=== PATIENT | female | born 1990 | race Hispanic/Latino ===

== ENCOUNTER 2019-03-25 02:31 | Inpatient (IN) | payer MEDICAID, SELFPAY ==
[2019-03-25 03:28] VITALS: BMI 29.2
[2019-03-25] MEDS ORDERED: hydrALAZINE 20 MG/ML VIAL SLOW IVP PRN ×3 (03:31→22:32)
[2019-03-25] MEDS ORDERED: Ondansetron PF 4 MG/2 ML Vial IVP PRN ×3 (03:40→22:32)
[2019-03-25] MEDS ORDERED: Acetaminophen 500 MG TAB PO PRN (03:40)
[2019-03-25] MEDS ORDERED: Promethazine HCl 25 MG/ML VIAL IM PRN ×2 (03:40→13:10)
[2019-03-25] MEDS ORDERED: NS / Oxytocin 40 units/1000ml 1,000 ML IV PRN (03:40)
[2019-03-25] MEDS ORDERED: Lidocaine 1% (PF) 30 ML VIAL SC PRN (03:40)
[2019-03-25] MEDS ORDERED: Ibuprofen 800 MG TAB PO PRN (03:40)
[2019-03-25] MEDS: Lactated Ringer's 1,000 ML IV SCH ×3 (04:00→12:38)
--- NOTE | 2019-03-25 04:01 | PDOC.FPROB ---
FMR OB H&P: HPI - History of Present Illness Chief Complaint: daphney brozan Indentification: 28 at 39.4 wga by LMP/9wk sono History of Present Illness: Reports gush of fluid at 0200 today. +FM. Small amount of VB. Is having painful ctx. Denies vaginal itching, other discharge. Had intercourse within past 24 hours. Does not desire epidural at this time. Plans to breastfeed. Primary Care Physician: PNC: Kenya Villagomez FMR OB H&P: Current - Care : 1 Para: 0 Gestational age: 39.4 Due date: 03/28/2019 Dating Criteria: LMP c/w 9 wk sono Course/Complications: Anemia of , iron supplementation - OB Labs Blood type: B RH: positive Antibody Screen: negative HIV: negative RPR: negative HepBsAg: negative Rubella: immune Gonorrhea: negative Chlamydia: negative Pap Smear: NILM 1 hour gtt: 127, wnl GBS: negative H&H: 9.9/29.5 Platelets: 196 - Additional Ultrasound Additional: at 28.1 wga. EFW 34%. ZEFERINO 15.6. Posterior placenta, no evidence of previa. FMR OB H&P: History - Past Medical History PMH: denies - OB History OB History: primigravida - RAMP SERVICE AGENT History RAMP SERVICE AGENT History: denies - Surgical History Sx History: denies - Social History Social History: denies smoking, drinking, drugs. - Family History Family History: mother has diabetes. FMR OB H&P: Medications - Current Home Medications: Medication Instructions Recorded Confirmed Type Chlorhexidine Gluconate [Periogard] 15 ml MM BID #0 mouthwash 03/04/13 Rx Triamcinolone Acetonide 1 applic TOP TID #0 tube 03/04/13 Rx [Triamcinolone Acet 0.1% Dental Paste] metroNIDAZOLE [Flagyl] 250 mg PO Q8HR #30 tab 03/04/13 Rx Allergies/Adverse Reactions: Allergies Allergy/AdvReac Type Severity Reaction Status Date / Time No Known Allergies Allergy Verified 03/04/13 19:16 FMR OB H&P: ROS - Review of Systems General: denies: fever/chills, recent trauma ENT: denies: sore throat Cardiovascular: denies: chest pain, edema Respiratory: denies: cough, shortness of breath Gastrointestinal: denies: nausea, vomiting, diarrhea Genitourinary (Female): reports: vaginal bleeding, contractions, vaginal pressure. denies: dysuria, vaginal discharge, vaginal pain Musculoskeletal: denies: pain Neurologic: denies: syncope, weakness Integumentary: denies: itching, rash Hematologic/Lymphatic: denies: prolonged or excessive bleeding Psychological: denies: depression, anxiety FMR OB H&P: Vital Signs - Maternal Vital signs: Vital Signs - First Documented Temp Pulse Resp BP Pulse Ox 100.1 F H 82 18 129/73 98 03/25/19 02:51 03/25/19 02:51 03/25/19 02:51 03/25/19 02:51 03/25/19 02:51 - Heart Tones Baseline: 130 Variability: moderate Acceleration: present Deceleration: absent Category: category 1 [place] contractions every: 1-2 min FMR OB H&P: Physical Exam - Physical Exam General: NAD, awake, alert and oriented HEENT: normocephalic and atraumatic, conjunctiva clear, no scleral icterus, grossly normal hearing Neck: trachea midline Heart: RRR, normal S1/S2, no murmurs/rubs/gallops General: CTAB, no respiratory distress, no wheezing Abdomen: soft, gravid, bowel sound present Lymphatic: no unusual bruising or bleeding Psychiatric: intact recent and remote memory, normal mood and affect - Pelvic Exam Vulva: normal hair distribution Deviation from normal: evidence of clear fluid outside of the vulva SVE: 4/75/-2, soft, midposition Pastor score: 8 Membranes: SROM ~0200 on 03/25 Presentation: cephalic by internal exam, head palpated. Estimated Weight: 8 lbs FMR OB H&P: A/P - Problem List (1) Term Current Visit: Yes Status: Acute Code(s): Z34.90 - ENCNTR FOR SUPRVSN OF NORMAL , UNSP, UNSP TRIMESTER (2) SROM (spontaneous rupture of membranes) Current Visit: Yes Status: Acute Code(s): [id number] - Disposition: admit to L&D for progression of labor. Expectant mgmt. LOS > 48H Discussion: Date/Time: 03/25/19 0358 28 yo presenting w/ rather uncomplicated : SROM - Latent labor, clarence regularly - Pastor of 8 w/ SVE of 4/75/-2 - reported ~0200 today 03/25 - Will admit to L&D for expectant mgmt - GBS neg. No ppx indicated. - Will recheck cervix in 2-4 hours. Will not augment at this time as pt is clarence well and has pastor score of 8 - Pt does not desire epidural at this time. - Diet : Clear liquids Anemia of - pt was taking vitamin - Will monitor after delivery. - Had early care and early gestational dating This H&P was discussed with Dr. Tsai and Dr. Ortiz who agree with the above documentation and plan. Signature: Mariia Bridges MD PGY1
[2019-03-25 04:20] LABS: Hemoglobin 10.3 g/dL (12.0-16.0); Mean Corpuscular HGB CONC 34.2 g/dL (32.0-36.0); Mean Corpuscular Hemoglobin 28.5 pg (27.0-31.0); Mean Corpuscular Volume 83.3 fL (78.0-98.0); Mean Platelet Volume 9.5 fL (7.4-10.4); Platelet Count 175 thou/uL (130-400); RBC Distribution Width 14.8 % (11.5-14.5); Red Blood Cell (RBC) Count 3.63 mill/uL (4.20-5.40); White Blood Cell (WBC) Count 9.1 thou/uL (4.8-10.8)
[2019-03-25 05:01] LABS: HBSAg Index 0.22 S/CO (0-0.99); Hep B Surf Ag Non-Reactive S/CO (NonReactive)
[2019-03-25 05:36] LABS: Syphilis Antibody Nonreactive (Nonreactive); Syphilis Antibody Index 0.07 S/CO (<1.00 Non-Reactive)
--- NOTE | 2019-03-25 06:11 | PDOC.OBLPN ---
FMR OB Labor PN: Subj - Interval History Hospital Day: 1 Chief Complaint: pain 6/10 w/ contractions Indentification: 28 at 39.4 wga by LMP / 9wk sono Interval History: increased pain w/ ctx. Wants to wait on getting epidural. FMR OB Labor PN: Obj - Maternal Vital signs: BP: 117/62 HR: 60s - Procedures Procedures: none FMR OB Labor PN: Exam - Pelvic Exam SVE: /-2 FMR OB Labor PN: Data - Labs Lab results: Laboratory Results - last 24 hr 03/25/19 03/25/19 03/25/19 04:02 04:02 04:02 WBC RBC Hgb Hct MCV MCH MCHC RDW Plt Count MPV Syphilis IgG/IgM Ab Nonreactive Hep Bs Antigen Non-Reactive Blood Type B POSITIVE Antibody Screen NEGATIVE 03/25/19 03/25/19 04:02 05:15 WBC 9.1 RBC 3.63 L Hgb 10.3 L Hct 30.2 L MCV 83.3 MCH 28.5 MCHC 34.2 RDW 14.8 H Plt Count 175 MPV 9.5 Syphilis IgG/IgM Ab Hep Bs Antigen Blood Type B POSITIVE Antibody Screen FMR OB Labor PN: A/P - Problem List (1) Term Current Visit: Yes Status: Acute Code(s): Z34.90 - ENCNTR FOR SUPRVSN OF NORMAL , UNSP, UNSP TRIMESTER (2) SROM (spontaneous rupture of membranes) Current Visit: Yes Status: Acute Code(s): [id number] - Discussion: Date/Time: 03/25/19 0609 Continue expectant mgmt. Recheck cervix in 2 hours. Ctx q2-4 min, cat [address] Villagomez (OB provider) updated on plan of care.
--- NOTE | 2019-03-25 08:15 | PDOC.OBLPN ---
FMR OB Labor PN: Subj - Interval History Hospital Day: 1 Chief Complaint: ROM Interval History: Breathing through contractions. Does not currently want an epidural. FMR OB Labor PN: Obj - Maternal Vital signs: BP: 120/66 HR: 76 RR: 98.4 FMR OB Labor PN: Exam - Physical Exam General: NAD, awake, alert and oriented HEENT: normocephalic and atraumatic, PERRLA, EOMI, conjunctiva clear, no scleral icterus Neck: supple, no LAD Heart: RRR, normal S1/S2, no murmurs/rubs/gallops, pulses present General: CTAB Abdomen: soft, gravid, non-tender, bowel sound present Musculoskeletal: pulses present Neurological: no focal deficit Skin: no rash, capillary refill <2 seconds Lymphatic: no LAD - Pelvic Exam Deviation from normal: bloody show SVE: 6/80/-2 FMR OB Labor PN: Data - Labs Lab results: Laboratory Results - last 24 hr 03/25/19 03/25/19 03/25/19 04:02 04:02 04:02 WBC RBC Hgb Hct MCV MCH MCHC RDW Plt Count MPV Syphilis IgG/IgM Ab Nonreactive Hep Bs Antigen Non-Reactive Blood Type B POSITIVE Antibody Screen NEGATIVE 03/25/19 03/25/19 04:02 05:15 WBC 9.1 RBC 3.63 L Hgb 10.3 L Hct 30.2 L MCV 83.3 MCH 28.5 MCHC 34.2 RDW 14.8 H Plt Count 175 MPV 9.5 Syphilis IgG/IgM Ab Hep Bs Antigen Blood Type B POSITIVE Antibody Screen FMR OB Labor PN: A/P - Problem List (1) SROM (spontaneous rupture of membranes) Current Visit: Yes Status: Acute Code(s): [id number] - (2) Term Current Visit: Yes Status: Acute Code(s): Z34.90 - ENCNTR FOR SUPRVSN OF NORMAL , UNSP, UNSP TRIMESTER Disposition: 28 at 39.4 wga by LMP/9wk sono Continue expectant mgmt. Recheck cervix in 2 hours. Ctx q2-4 min, cat [address] Villagomez. Discussion: Date/Time: 03/25/19813 This H&P was discussed with [] and [] who agree with the above documentation and plan.
[2019-03-25] MEDS ORDERED: FLU VACC QS2019-20(6MOS UP)/PF 60 MCG/0.5 ML SYRINGE IM ONE (09:00)
[2019-03-25] MEDS ORDERED: Bupivacaine HCl 0.25%/Epi 0.0005/PF 10 ML VIAL FS ONE (09:00)
[2019-03-25] MEDS ORDERED: Bupivacaine 0.25% HCL 30 ML VIAL ONE (09:00)
--- NOTE | 2019-03-25 10:21 | PDOC.LDPN ---
Labor & Delivery Progress Note - Subjective Subjective: painful contractions - Objective Vital signs reviewed and normal: yes General: resting, breathing through contractions Uterine fundus: non tender Dilation: 6.5 Effacement: 75% Station: -2 FHT: category 1, late decelerations (x1 ), variability present [place] contractions every: 5-6 mins Resuscitative measures: maternal position change (resolved decels ) - Assessment (1) Term Code(s): Z34.90 - ENCNTR FOR SUPRVSN OF NORMAL , UNSP, UNSP TRIMESTER Current Visit: Yes Status: Acute Plan: continue plan of care -: 28 at 39.4 wga by LMP/9wk sono minimal change for two hours, begin pitocin late decel resolved with maternal position change continue to monitor and manage expectantly
[2019-03-25] MEDS ORDERED: NS w/ Oxytocin 10 units 500 ML IV SCH (10:30)
[2019-03-25] MEDS ORDERED: Butorphanol Tartrate 1 MG/ML VIAL ONE (11:47)
--- NOTE | 2019-03-25 12:26 | PDOC.LDPN ---
Labor & Delivery Progress Note - Subjective Subjective: painful contractions - Objective General: breathing through contractions Uterine fundus: tender to palpation Dilation: 6.5 Effacement: 90% Station: -2 FHT: category 1, variability present [place] contractions every: 2-3 minutes - Assessment (1) SROM (spontaneous rupture of membranes) Code(s): [id number] - Current Visit: Yes Status: Acute (2) Term Code(s): Z34.90 - ENCNTR FOR SUPRVSN OF NORMAL , UNSP, UNSP TRIMESTER Current Visit: Yes Status: Acute -: 28 at 39.4 wga by LMP/9wk sono * Minimal change for two hours * Pitocin started @ 1000 * Late decel resolved with maternal position change * Was given Stadol and experienced decel. Currently no decels. * FHT: 120 Cat 1 with moderate variability. no decel and no accelerations currently continue to monitor and manage expectantly
[2019-03-25] MEDS ORDERED: Fentanyl 4 mcg/Bup 0.1% Cadd 100 ML ONE (12:30)
[2019-03-25] MEDS ORDERED: ePHEDrine/0.9% NaCl/PF SYRINGE 50 mg/10 ml SLOW IVP PRN (13:10)
[2019-03-25] MEDS ORDERED: Lactated Ringer's 500 ML IV PRN (13:10)
[2019-03-25] MEDS ORDERED: diphenhydrAMINE 50 MG/ML VIAL IVP PRN (13:10)
[2019-03-25] MEDS ORDERED: Acetaminophen 325 MG TAB PO PRN (13:10)
[2019-03-25] MEDS ORDERED: Naloxone HCl 0.4 mg/ml Vial IVP PRN ×2 (13:10)
[2019-03-25] MEDS ORDERED: Communication Order-Pharmacy FS SCH (13:15)
[2019-03-25] MEDS ORDERED: Fentanyl 4 mcg/Bupivacaine 0.1% Cassette 100 ML EPIDURAL SCH (13:15)
--- NOTE | 2019-03-25 14:29 | PDOC.LDPN ---
Labor & Delivery Progress Note - Subjective Subjective: comfortable - Objective Vital signs reviewed and normal: yes General: NAD, resting Uterine fundus: non tender Dilation: 7 Effacement: 90% Station: -2 FHT: category 1, acceleration absent, variability present [place] contractions every: 3 minutes Procedures: IUPC placed - Assessment (1) SROM (spontaneous rupture of membranes) Code(s): [id number] - Current Visit: Yes Status: Acute (2) Term Code(s): Z34.90 - ENCNTR FOR SUPRVSN OF NORMAL , UNSP, UNSP TRIMESTER Current Visit: Yes Status: Acute Plan: continue plan of care -: 28 at 39.4 wga by LMP/9wk sono * Making minimal change * Pitocin started @ 1000 * Was given Stadol and experienced decel. Currently no decels. * FHT: 120 Cat 1 with moderate variability. no decel and no accelerations currently * Epidural @ 1300 * IUPC placed @ 1430 * Check is /-2 continue to monitor and manage expectantly
--- NOTE | 2019-03-25 17:31 | PDOC.LDPN ---
Labor & Delivery Progress Note - Subjective Subjective: comfortable - Objective Vital signs reviewed and normal: yes General: NAD Uterine fundus: non tender SVE: 8/100/0 Dilation: 8 Effacement: 100% Station: 0 FHT: category 1 [place] contractions every: 3 minutes - Assessment (1) SROM (spontaneous rupture of membranes) Code(s): [id number] - Current Visit: Yes Status: Acute (2) Term Code(s): Z34.90 - ENCNTR FOR SUPRVSN OF NORMAL , UNSP, UNSP TRIMESTER Current Visit: Yes Status: Acute Plan: continue plan of care -: 28 at 39.4 wga by LMP/9wk sono * Making good change * Pitocin started @ 1000 * Was given Stadol and experienced decel. Currently no decels. * FHT: 120 Cat 1 with moderate variability. no decel and no accelerations currently * Epidural @ 1300 * IUPC placed @ 1430 * Check is 8/100/0 @ 1550 * MVU 220 continue to monitor and manage expectantly
--- NOTE | 2019-03-25 18:18 | PDOC.LDPN ---
Labor & Delivery Progress Note - Subjective Subjective: comfortable, no concerns (epidural in place) - Objective Vital signs reviewed and normal: yes General: NAD, resting SVE: 9.5/100/0 FHT: category 2, early decelerations, variable decelerations (intermittent), late decelerations (x1, resolves w/ position change), variability present ( minimal variability) [place] contractions every: 2 min IUPC placed: yes Resuscitative measures: maternal IV fluids, maternal position change - Assessment (1) Term Code(s): Z34.90 - ENCNTR FOR SUPRVSN OF NORMAL , UNSP, UNSP TRIMESTER Current Visit: Yes Status: Acute (2) SROM (spontaneous rupture of membranes) Code(s): [id number] - Current Visit: Yes Status: Acute Plan: continue plan of care, resuscitative measures -: continue pitocin for augmentation monitor strip: category 2, HR 130, intermittent variable decels, one late decel, one early decel over past [address] continue expectant mgmt Dr. Villagomez and Juanita updated on plan of care Stoney Bridges MD PGY1
[2019-03-25] MEDS ORDERED: NS / Oxytocin 40 units/1000ml 1,000 ML ONE (18:34)
[2019-03-25] MEDS ORDERED: Lidocaine 1% (PF) 30 ML VIAL ONE (19:49)
[2019-03-25 20:17] LABS: Actual Bicarbonate (HCO3a) 21.1 mEq/L (22-28)
[2019-03-25 20:20] LABS: Actual Bicarbonate (HCO3v) 22 mEq/L (22-28); Base Excess -4.2 mEq/L (-2.0 to +3.0); pH (Cord, venous) 7.31 (7.32-7.43)
--- NOTE | 2019-03-25 20:59 | PDOC.EVN ---
Event Note - Event Note Event Note: Contacted by Dr. Grant at 1900 to attend delivery on [facility] patient with residents. I arrived at the room shortly after. Infant initially in OP position. I attempted to manually rotate infant into OA position unsuccessfully. Pushed with patient for 1 hour but failed to descend beyond 2+ station. began to experience recurrent late decelerations into the 80s, which initially resolved into the 110s to 120s. The then experienced a prolonged deceleration in the 80s to 90s that lasted for approximately 2-3 minutes. Decision was made to proceed with VAVD since infant was in 2+ station and it was felt that the patient's pelvis was adequate for vaginal delivery. Patient was counseled on R/B/A and agreed with decision. Vacuum was placed in the midflexion point and brought to the appropriate pressure. First pull moved the from 2+ station to 4+ station. A pop off occurred at this time. Vacuum was reapplied at this time and infant was delivered in the OA position as the infant had rotated during the first pull. Less than 5 minutes total vacuum time. Nuchal cord x1 noted. Neonatology team waiting in the room at time of delivery. Infant did not require supplemental oxygen or PPV. umbilical artery cord gas 7.22/52.2/TNP/21.1. See procurement internship note for details regarding laceration repairs and patients history. I spoke with Dr. Grant following the delivery and he has elected to have the [facility] faculty continue to see the patient during her PP course.
--- NOTE | 2019-03-25 22:24 | PDOC.OPDEL ---
OB Operative/Delivery Note Delivery Dr/Surgeon: Segundo (attending) Assist: Cyrus (PGY1), Hernando (PGY2), Angel (PGY3) Pre-Delivery Diagnosis: active labor, non-reassuring tracing Procedure/Post Delivery Dx: operative vaginal delivery (vacuum assisted vaginal delivery) Weeks gestation: 39 (39.4) Anesthesia: local (15 mL for sidewall vaginal repair) - Findings A Sex: male - 1 min: 8 - 5 min: 9 - Additional Findings/Plan Placenta delivered: spontaneous (at 20:07) Repaired Obstetrical Laceration: other (2nd degree perineal, R labial and R vaginal ~ 4cm: all repaired w/ 3-0 vicryl) Compilations/Other Findings: Procedure: Vacuum-Assisted Vaginal Delivery Anesthesia: epidural, Local for Repair QBL: 632 ml Pre-op Diagnosis: 1. Term intrauterine in labor 2. Anemia of Post-op Diagnosis: 1. Term intrauterine , delivered 2. same as above 3. Recurrent late decelerations on strip, persistent Category 2 strip Indications: A 28y/o female presents in active labor after SROM at home at 0200 on 03/25. Delivery Note: This is 28 yo F @ 39.4 wks who delivered a viable M infant at 19:43 on 03/25. was determined to be in OP position. Mother pushed for approximately 1 hour and achieved station of 2+. strip was persistently category 2 with pushing for recurrent late decelerations and prolonged decels x2. Decision was made to proceed w/ VAVD. Dr. Villagomez consented the patient; risks, benefits, and alternatives to the procedure were explained to the patient. After consent was obtained, vacuum was applied at median flexion point and determined to be free of maternal tissue. After two pulls and 1 popoff, a vigorous male was delivered over an intact perineum in the ROT position. Anterior Shoulder and then remainder of the body delivered. Nuchal cord x1. Cord clamped and cut promptly, section set aside for cord gases. Cord blood collected. Placenta delivered intact in the [place] presentation at 20:07 with a 3 vessel cord noted. Bimanual massage was performed , and the fundus was firm. The cervix and vagina were inspected and R vaginal, R labial, and 2nd degree perineal Lacerations were noted and repaired with 3-0 vicryl suture in the usual fashion with good approximation and hemostasis after a local anesthetic of lidocaine was injected at site. was taken immediately to warmer after delivery, and went to nursery in good condition for routine care. Apgars were 8/9 at 1 & 5 minutes, respectively. Patient tolerated delivery well and went to after routine recovery/ care. Vacuum applied for <5 minutes in total. Pressure never exceeded 20 inches of Hg. arterial pH noted to be 7.22. Post delivery plan: routine recovery Addendum - Attending - Attending Attestation Date/Time: 03/25/19 4373 I personally evaluated the patient and discussed the management with Dr. Bridges I agree with the History, Examination, Assessment and Plan documented above with any addition or exceptions noted below. I was present for the entire delivery and laceration repair. Please see my event note for additional details.
[2019-03-25] MEDS ORDERED: NS / Oxytocin 40 units/1000ml 1,000 ML IV SCH (22:32)
[2019-03-25] MEDS ORDERED: Lanolin Ointment 7 GM TUBE TOP PRN (22:32)
[2019-03-25] MEDS ORDERED: Milk Of Magnesia 30 ML UDCUP PO PRN (22:32)
[2019-03-25] MEDS ORDERED: Benzocaine-Menthol 82.5 ML CAN TOP PRN (22:32)
[2019-03-25] MEDS ORDERED: Bisacodyl 10 MG SUPP PR PRN (22:32)
[2019-03-25] MEDS ORDERED: Misoprostol 200 MCG TAB VAG PRN (22:32)
[2019-03-25] MEDS ORDERED: diphenhydrAMINE 25 MG CAP PO PRN (22:32)
[2019-03-25] MEDS ORDERED: Ibuprofen 800 MG TAB PO SCH (22:45)
[2019-03-25] MEDS ORDERED: Docusate Calcium (SURFAK) 240 MG CAP PO SCH (22:45)
[2019-03-26] MEDS: Ibuprofen 800 MG TAB PO SCH ×2 (04:32→17:05)
[2019-03-26 06:17] LABS: #Lymphocytes 1.2 thou/uL (1.20-3.40); #Monocytes 1.1 thou/uL (0.11-0.59); #Neutrophils 11.7 thou/uL (1.40-6.50); %Basophils 0.1 % (0.0-1.0); %Eosinophils 0.1 % (0.0-10.0); %Lymphocytes 8.3 % (21.0-51.0); %Neutrophils 83.5 % (42.0-75.0); Hemoglobin 7.6 g/dL (12.0-16.0); Mean Corpuscular HGB CONC 33.4 g/dL (32.0-36.0); Mean Corpuscular Hemoglobin 28.3 pg (27.0-31.0); Mean Corpuscular Volume 84.8 fL (78.0-98.0); Mean Platelet Volume 9.2 fL (7.4-10.4); Platelet Count 136 thou/uL (130-400); RBC Distribution Width 14.9 % (11.5-14.5); Red Blood Cell (RBC) Count 2.69 mill/uL (4.20-5.40); White Blood Cell (WBC) Count 14.1 thou/uL (4.8-10.8)
--- NOTE | 2019-03-26 06:54 | PDOC.PP ---
Post Progress Note Post Day #: 1 Subjective: Patient doing well this morning. Ambulating without difficulty, denies dizziness or lightheadedness. Perineal pain improved with dermoplast and ibuprofen. Reports lochia is decreasing. Says she had difficulty urinating earlier but she is going to try again this morning. PO intake tolerated: yes Flatus: yes Ambulation: yes Vital Signs (12 hours) Temp Pulse Resp BP Pulse Ox 03/26/19 04:00 98.3 F 89 16 111/58 L 03/26/19 00:25 73 20 96/51 L 03/25/19 23:00 99.3 F 77 20 88/50 L 99 Weight Weight 65.771 kg - Physical Examination General: NAD Cardiovascular: no m/r/g, RRR Respiratory: clear to auscultation bilaterally Abdominal: no distention, appropriately TTP Fundus firm & at: below umbilicus Deviation from normal: bilateral LE nonpitting edema Neurological: no gross focal deficits Psychiatric: normal affect Result Diagrams: 03/26/19 05:59 Additional Labs: Post Labs Blood Type B POSITIVE 03/25/19 05:15 Hep Bs Antigen Non-Reactive S/CO (NonReactive) 03/25/19 04:02 (1) care and examination Code(s): Z39.2 - ENCOUNTER FOR ROUTINE FOLLOW-UP Status: Acute (2) Anemia Code(s): D64.9 - ANEMIA, UNSPECIFIED Status: Acute - Assessment/Plan 28 yo delivered via VAVD on 03/25 - Recovering well - , consult placed - will discuss contraception prior to discharge - pain well controlled Acute blood loss on iron deficiency anemia - Hgb 7.6 this am, patient asymptomatic, vital signs stable - Continue PNV and iron supplementation BID Dispo: Continue routine care. senior sustainability consultant today. Likely discharge tomorrow considering no complications
[2019-03-26] MEDS ORDERED: Adacel (T-DAP) 0.5 ML SYRINGE IM ONE (09:00)
[2019-03-26] MEDS: Ferrous Sulfate 325 MG TAB PO SCH ×2 (10:10→17:05)
[2019-03-26] MEDS: Prenatal Vitamin 1 TAB PO SCH (10:10)
[2019-03-26] MEDS: Docusate Calcium (SURFAK) 240 MG CAP PO SCH (10:11)
[2019-03-27] MEDS: Ibuprofen 800 MG TAB PO SCH ×2 (00:07→09:33)
[2019-03-27] MEDS: Docusate Calcium (SURFAK) 240 MG CAP PO SCH ×2 (00:07→09:33)
--- NOTE | 2019-03-27 07:02 | PDOC.PP ---
Post Progress Note Post Day #: 2 Subjective: Patient is feeling well and has no concerns. Lochia and pain decreasing. Urinating well. Undecided on contraception. Denies dizziness, lightheaded. PO intake tolerated: yes Flatus: yes Ambulation: yes Vital Signs (12 hours) Temp Pulse Resp BP Pulse Ox 03/26/19 20:00 97 03/26/19 19:53 99.1 F 102 H 20 97/51 L 97 Weight Weight 65.771 kg - Physical Examination General: NAD Cardiovascular: no m/r/g, RRR Respiratory: clear to auscultation bilaterally, non-labored breathing Abdominal: + bowel sounds, no distention, appropriately TTP Fundus firm & at: below umbilicus Neurological: no gross focal deficits Psychiatric: normal affect Result Diagrams: 03/26/19 05:59 Additional Labs: Post Labs Blood Type B POSITIVE 03/25/19 05:15 Hep Bs Antigen Non-Reactive S/CO (NonReactive) 03/25/19 04:02 (1) care and examination Code(s): Z39.2 - ENCOUNTER FOR ROUTINE FOLLOW-UP Status: Acute (2) Anemia Code(s): D64.9 - ANEMIA, UNSPECIFIED Status: Acute - Assessment/Plan 28 yo delivered via VAVD on 03/25 - Recovering well - , consult placed-plan to see her today - Undecided on contraception, considering condom vs OCP - pain well controlled Acute blood loss on iron deficiency anemia - Hgb 7.6 PP, patient asymptomatic, vital signs stable - Continue PNV and iron supplementation BID Dispo: performance test consultant today. Otherwise stable for discharge today with follow up at [facility] in 2 weeks.
[2019-03-27 09:14] VITALS: BP 100/53; TEMP 98.6
[2019-03-27] MEDS: Ferrous Sulfate 325 MG TAB PO SCH (09:33)
[2019-03-27] MEDS: Prenatal Vitamin 1 TAB PO SCH (09:33)
--- NOTE | 2019-03-29 09:07 | DIS ---
DATE OF ADMISSION: 03/25/2019 DATE OF DISCHARGE: 03/27/2019 DELIVERY DATE: 03/25/2019 at 1943 hours. RESIDENT: Kenya Villagomez DO. DISCHARGE DIAGNOSES: 1. TAGA viable male. 2. Maternal history of anemia during . PROCEDURES: None. HISTORY OF PRESENT ILLNESS: Baby boy represented the 39.4 week product delivered of a 28-year-old G1, blood type B positive, GBS negative, HIV negative, rubella immune, hepatitis B negative, RPR negative mother. Maternal history is positive for anemia during . was otherwise uncomplicated. Vacuum assisted vaginal delivery was accomplished at 1943 hours on 03/25/2019, by dr. Ortiz, Dr. Villagomez, Dr. Bridges with Dr. Raymond attending. No resuscitation was needed. Apgars were 8 and 9 at 1 and 5 minutes respectively. PHYSICAL EXAMINATION: Weight 6 pounds and 13 ounces, 3085 g. Length head circumference the physical exam was remarkable for a right buttock [place] spot. HOSPITAL COURSE: The experienced an unremarkable hospital course, established feedings well, voided, stooled normally. DISPOSITION: Discharged to home on 03/27/2019, with discharge weight of 6 pounds and 10 ounces, 2993 g. MEDICATIONS: None. DIET: Breast and bottle ad-rachel. Blood type O positive, Mony negative. Hearing screen passed on 03/27/2019. Hepatitis B vaccine given on 03/25/2019. Discharge bilirubin was 8.2 at 33 hours of life, placing the patient in a low intermediate risk. FOLLOWUP: To establish at [facility] in [place] in 3 days. Job ID: [id number]
== END 2019-03-27 16:05 | disposition home or self-care (01) | DRG 806 ==
LOC: L&D/OP 02:31 → L&D 03:48 → 3SW 23:04
PROVIDERS: ADMIT Obstetrics & Gynecology; ATTEND Obstetrics & Gynecology
PROC: 10D07Z6 Extraction of Products of Conception, Vacuum, Via Natural or Artificial Opening (ICD-10-PCS; principal; 2019-03-25)
PROC: 0KQM0ZZ Repair Perineum Muscle, Open Approach (ICD-10-PCS; 2019-03-25)
DX: O99.02 Anemia complicating childbirth (principal); D62 Acute posthemorrhagic anemia; Z37.0 Single live birth; Z3A.39 39 weeks gestation of pregnancy; O69.81X0 Labor and delivery complicated by cord around neck, without compression, not applicable or unspecified; O76 Abnormality in fetal heart rate and rhythm complicating labor and delivery; O70.1 Second degree perineal laceration during delivery
CPT/HCPCS: 36415; 51702; 82805; 85025; 85027; 86780; 86850; 86900; 86901; 87340; 88307; 99285; J0595; J2001; J2405; S0020

== ENCOUNTER 2020-03-06 15:12 | Inpatient (IN) | payer OTHER, SELFPAY ==
[~2020-03-06 15:12] MED LIST: Bupivacaine/Epinephrine 0.25% 30 ML VIAL ONE; Lidocaine 2% MPF 10 ML AMP (For Epidural Use) ONE
[2020-03-06] MEDS: Lactated Ringer's 1,000 ML IV SCH ×2 (15:39→19:17)
[2020-03-06 15:47] VITALS: BMI 30.2
[2020-03-06 16:33] LABS: Amnisure Test No Membranes Rupture (No Rupture)
[2020-03-06 16:34] LABS: Amnisure Internal Control QC ACCEPTABLE (ACCEPTABLE)
[2020-03-06] MEDS ORDERED: NS / Oxytocin 40 units/1000ml 1,000 ML IV PRN (17:01)
[2020-03-06] MEDS ORDERED: Diphenoxylate HCl/Atropine Tablet PO PRN ×2 (17:01)
[2020-03-06] MEDS ORDERED: hydrALAZINE 20 MG/ML VIAL SLOW IVP PRN ×2 (17:01→21:47)
[2020-03-06] MEDS ORDERED: Promethazine HCl 25 MG/ML VIAL IM PRN (17:01)
[2020-03-06] MEDS ORDERED: Methylergonovine 0.2 MG/ML VIAL IM PRN (17:01)
[2020-03-06] MEDS ORDERED: Ibuprofen 800 MG TAB PO PRN (17:01)
[2020-03-06] MEDS ORDERED: Carboprost 250 MCG/ML AMP IM PRN (17:01)
[2020-03-06] MEDS ORDERED: Lidocaine 1% (PF) 30 ML VIAL SC PRN (17:01)
[2020-03-06] MEDS ORDERED: Butorphanol Tartrate 1 MG/ML VIAL SLOW IVP PRN (17:01)
[2020-03-06] MEDS ORDERED: Ondansetron PF 4 MG/2 ML Vial IVP PRN (17:01)
[2020-03-06] MEDS ORDERED: Misoprostol 200 MCG TAB PR PRN (17:01)
--- NOTE | 2020-03-06 17:08 | PDOC.FPROB ---
FMR OB H&P: HPI - History of Present Illness Chief Complaint: contractions Indentification: @ 39.3 WGA History of Present Illness: 29YO @ 39.3 WGA presenting after being told she was 6cm dilated in [facility] today. Reports persistent contractions but states they are not super painful. Denies any LOF/VB/VD. +FM. No complcations this other than anemia on PO iron. Denies any fever/chills, cough, congestion, chest pain or sore throat. [facility] H&P: Current - Care : 2 Para: 1001 Gestational age: 39.3 WGA Due date: 03/10/20 Dating Criteria: 9.2 wk sono Course/Complications: anemia & short IPI - OB Labs Blood type: B RH: positive Antibody Screen: negative RPR: negative HepBsAg: negative Rubella: immune Gonorrhea: negative Chlamydia: negative GBS: negative Additional labs: 2hr GTT WNLs - First Trimester Ultrasound First trimester: sIUP w/ YARIEL 03/10/20 FMR OB H&P: History - Past Medical History PMH: none - OB History OB History: #1: VAVD in 03/2019 @ 39 WGA w/ 2nd degree lac - VALVER History VALVER History: No STI Hx or h/o abnormal paps - Surgical History Sx History: None - Social History Social History: No TAD - Family History Family History: DMII in mother FMR OB H&P: Medications - Current Home Medications: Medication Instructions Recorded Confirmed Type Ferrous Sulfate [Feosol] 325 mg PO BID- #60 tab 03/27/19 Rx Vitamin 1 tab PO DAILY tab 03/27/19 Rx Allergies/Adverse Reactions: Allergies Allergy/AdvReac Type Severity Reaction Status Date / Time No Known Allergies Allergy Verified 03/06/20 15:45 FMR OB H&P: ROS - Review of Systems General: denies: fever/chills, weight/appetite/sleep changes Eyes: denies: vision changes ENT: denies: nasal congestion, sore throat Cardiovascular: denies: chest pain, edema Respiratory: denies: cough, shortness of breath Gastrointestinal: denies: nausea, diarrhea Genitourinary (Female): reports: contractions. denies: vaginal discharge, vaginal bleeding Neurologic: denies: headache Psychological: denies: depression, anxiety FMR OB H&P: Vital Signs - Maternal Vital signs: BP: 111/66 HR: 70 O2 sat 100% on RA Temp: 98.3F - Heart Tones Baseline: 145 Variability: moderate Acceleration: present Deceleration: absent Category: category 1 [employer] contractions every: 6-10 minutes FMR OB H&P: Physical Exam - Physical Exam General: NAD, awake, alert and oriented HEENT: normocephalic and atraumatic, grossly normal vision, grossly normal hearing Neck: supple, FROM Heart: RRR, normal S1/S2, no murmurs/rubs/gallops General: CTAB, no respiratory distress Abdomen: gravid Musculoskeletal: normal gait and station, FROM in all four extremities Neurological: cranial nerves II through XII intact, sensation to pain,touch and proprioception grossly normal, no focal deficit Skin: no rash, good tugor Psychiatric: intact recent and remote memory, good judgement and insight, normal mood and affect - Pelvic Exam Vulva: normal hair distribution, no discharge SVE: /-3 @ 1610 Membranes: intact Presentation: cephalic FMR OB H&P: Results - Labs Lab results: Laboratory Results - last 24 hr 03/06/20 16:08 Amnio Swab Test No Membranes Rupture FMR OB H&P: A/P - Problem List (1) Term Current Visit: No Status: Acute Code(s): Z34.90 - ENCNTR FOR SUPRVSN OF NORMAL , UNSP, UNSP TRIMESTER (2) Short interval between pregnancies affecting , antepartum Current Visit: Yes Status: Chronic Code(s): O09.899 - SUPERVISION OF OTHER HIGH RISK PREGNANCIES, UNSP TRIMESTER (3) History of vacuum extraction assisted delivery Current Visit: Yes Status: Chronic Code(s): Z87.59 - PERSONAL HISTORY OF COMP OF PREG, CHLDBRTH AND THE PUERP (4) Anemia Current Visit: No Status: Chronic Code(s): D64.9 - ANEMIA, UNSPECIFIED Qualifiers: Anemia type: iron deficiency Disposition: 29YO @ 39.3 WGA presenting for contractions. Term sIUP in latent labor: - /-3 on arrival with negative amnisure. Maternal VS WNLs & contractions q6- 10 minutes. Cat 1 FHT. - Will plan to admit for routine labor management & start pitocin for labor augmentation. - GBS neg so no need for intrapartum PPX. - COVID swab to be obtained for routine L&D screening. anemia in : - Aware, on PO iron. H/H to be done with admission labs. Short IPI: - Aware. Dispo: Will admit to L&D for routine labor management with plans to start pitocin for augmentation & recheck cervix in ~3-4 hours. Discussion: Date/Time: 03/06/20 6106 This H&P was discussed with Dr. Boss who agrees with the above documentation and plan.
[2020-03-06] MEDS ORDERED: NS w/ Oxytocin 10 units 500 ML ONE (17:11)
[2020-03-06] MEDS ORDERED: NS w/ Oxytocin 10 units 500 ML IV SCH ×2 (17:15)
[2020-03-06 17:26] LABS: Hemoglobin 10.7 g/dL (12.0-16.0); Mean Corpuscular HGB CONC 33.8 g/dL (32.0-36.0); Mean Corpuscular Hemoglobin 28.2 pg (27.0-31.0); Mean Corpuscular Volume 83.4 fL (78.0-98.0); Platelet Count 166 thou/uL (130-400); RBC Distribution Width 17.3 % (11.5-14.5); Red Blood Cell (RBC) Count 3.79 mill/uL (4.20-5.40)
--- NOTE | 2020-03-06 17:28 | HP ---
TIME SEEN: 1653 hours. LOCATION: Labor and delivery. This is a faculty history and physical and faculty attestation. CHIEF COMPLAINT: This patient is sent from the clinic. The patient's resident provider is Dr. Soco Shipley with the Family Medicine OB team. HISTORY OF PRESENT ILLNESS: This patient was first seen this morning at the clinic at about 9:30 am in the morning when Dr. Cisneros called Labor and Delivery and stated that he was going to send her for possible labor. This patient is a 29-year-old, G2, P1, at 39 weeks and 3 days, who was called 6 cm in clinic and due to her history of on and off contractions, she was sent over this morning. However, the patient just arrived about 30 minutes ago. Again, it is close to 5 p.m. There is no evidence of leakage of fluid or vaginal bleeding. She has good movement and there is no other immediate or issue. REVIEW OF SYSTEMS: Complete review of systems was checked and is otherwise negative unless specified in the HPI. PAST OB HISTORY: Significant for vaginal delivery in March of 2019. This is a short interval. That baby was delivered by vacuum extraction. PAST MEDICAL HISTORY: Noncontributory. ALLERGIES: WELL ARE NONCONTRIBUTORY. FAMILY HISTORY: Negative. SOCIAL HISTORY: Negative as well. PHYSICAL EXAMINATION: VITAL SIGNS: Her blood pressure is stable and normal. She is normotensive and afebrile. She is non-tachycardic. GENERAL: She is no acute distress. PELVIC: Cervix here is 4 cm dilated, 50% effaced, -3 station with no gross evidence of rupture. On the monitor, heart tones are reactive with good variability. There is some contractions on tocodynamometer, but they are infrequent, about every 6-10 minutes. LABORATORY DATA: She had an AmniSure sent to make sure she was not ruptured and her AmniSure was negative and this also is consistent with her negative exam for signs of rupture. ASSESSMENT: This is a multigravida at full-term with GBS negative status, who is in latent labor. She was sent here for possible labor. PLAN: To keep her for labor induction with Pitocin. Job ID: [id number]
[2020-03-06 18:04] LABS: HBSAg Index 0.18 S/CO (0-0.99); Hep B Surf Ag Non-Reactive S/CO (NonReactive); Syphilis Antibody Nonreactive (Nonreactive); Syphilis Antibody Index 0.08 S/CO (<1.00 Non-Reactive)
--- NOTE | 2020-03-06 19:48 | PDOC.LDPN ---
Labor & Delivery Progress Note - Subjective Subjective: comfortable - Objective Vital signs reviewed and normal: yes General: NAD, resting Uterine fundus: non tender Dilation: 5 Effacement: 75% Station: 3+ FHT: category 1 (accels present, no decels, FHT 140 baseline), variability present [place] contractions every: 2-3 min Other exam findings: SROM, clear fluid Plan: continue plan of care -: 29YO @ 39.3 WGA presenting for contractions. Term sIUP admitted for routine labor management -On pit, @4, for labor augmentation -GBS neg so no need for intrapartum PPX. -COVID swab to be obtained for routine L&D screening 1610 4/50/-3, cxr 6-10 min, cat 1 strip 1945 5/75/-3, cxr 2-3 min, cat 1 strip, +SROM anemia in : - Aware, on PO iron. H/H to be done with admission labs. Short IPI: - Aware Dispo: Continue current plan of care. Recheck cervix in ~3-4 hours.
[2020-03-06] MEDS ORDERED: Fentanyl 4 mcg/Bup 0.1% Cadd 100 ML ONE (20:34)
[2020-03-06] MEDS ORDERED: Acetaminophen/Codeine 30-300mg Tablet PO PRN ×2 (21:47)
[2020-03-06] MEDS ORDERED: Lanolin Ointment 7 GM TUBE TOP PRN (21:47)
[2020-03-06] MEDS ORDERED: Milk Of Magnesia 30 ML UDCUP PO PRN (21:47)
[2020-03-06] MEDS ORDERED: Bisacodyl 10 MG SUPP PR PRN (21:47)
--- NOTE | 2020-03-06 21:52 | PDOC.OPDEL ---
OB Operative/Delivery Note Delivery Dr/Surgeon: Vito Assist: Lionel (Boss present as staff) Pre-Delivery Diagnosis: active labor Procedure/Post Delivery Dx: spontaneous vaginal delivery Anesthesia: epidural (placed just before delivery) - Findings A Sex: female - 1 min: 8 (verbal) - 5 min: 9 (verbal) - Additional Findings/Plan Placenta delivered: spontaneous (at 2156; intact;mikki,) Repaired Obstetrical Laceration: 1st degree (repaired with local; small 1cm vag inclusion cyst noted at 6Oclock, not removed.) Estimated blood loss: 200 Compilations/Other Findings: [place] female at 2147; no NC Vigorous . Nursery present in room. Lac repaired under local; 3-[address] Flowers/Vito Post delivery plan: routine recovery
[2020-03-06] MEDS ORDERED: NS / Oxytocin 40 units/1000ml 1,000 ML IV SCH (22:00)
[2020-03-07 06:25] LABS: Hemoglobin 9.9 g/dL (12.0-16.0); Mean Corpuscular HGB CONC 34.5 g/dL (32.0-36.0); Mean Corpuscular Hemoglobin 28.8 pg (27.0-31.0); Mean Corpuscular Volume 83.7 fL (78.0-98.0); Mean Platelet Volume 10.6 fL (7.4-10.4); Platelet Count 138 thou/uL (130-400); RBC Distribution Width 17.4 % (11.5-14.5); Red Blood Cell (RBC) Count 3.43 mill/uL (4.20-5.40); White Blood Cell (WBC) Count 15.3 thou/uL (4.8-10.8)
--- NOTE | 2020-03-07 07:27 | PDOC.PP ---
Post Progress Note Post Day #: 1 Subjective: Pain is well controlled. Desires to breastfeed but has not done so yet. Ambulating and urinating fine, passing gas. Lochia about like a period. PO intake tolerated: yes Flatus: yes Ambulation: yes Weight Weight 68.039 kg - Physical Examination General: NAD Cardiovascular: no m/r/g, RRR Respiratory: clear to auscultation bilaterally, non-labored breathing Abdominal: + bowel sounds, appropriately TTP Fundus firm & at: below umbilicus Neurological: no gross focal deficits Psychiatric: A&Ox3, normal affect Result Diagrams: 03/07/20 06:17 Additional Labs: Post Labs Hep Bs Antigen Non-Reactive S/CO (NonReactive) 03/06/20 17:15 Blood Type B POSITIVE 03/06/20 17:15 - Assessment/Plan sIUP, delivered - PPD #1 - Meeting PP milestones - COVID pending - Continue routine care - Contraception: undecided Anemia of Short IP - Delivered VAVD 03/2019
[2020-03-07] MEDS: Prenatal Vitamin 1 TAB PO SCH (08:44)
[2020-03-07] MEDS: Ferrous Sulfate 325 MG TAB PO SCH ×2 (08:44→18:10)
[2020-03-07] MEDS: Docusate Calcium (SURFAK) 240 MG CAP PO SCH ×2 (08:44→22:14)
[2020-03-07] MEDS: Ibuprofen 800 MG TAB PO SCH ×4 (08:44→22:14)
[2020-03-07] MEDS ORDERED: Measles/Mumps/Rubella 10 MCG/0.5 ML VIAL SC ONE (09:00)
[2020-03-07] MEDS ORDERED: Adacel (T-DAP) 0.5 ML SYRINGE IM ONE (09:00)
[2020-03-07] MEDS ORDERED: Varicella virus, LIVE 0.5 ML VIAL SC ONE (09:00)
[2020-03-07] MEDS ORDERED: NS / Oxytocin 40 units/1000ml 1,000 ML ONE (11:50)
[2020-03-07] MEDS ORDERED: Lidocaine 1% (PF) 30 ML VIAL ONE (11:50)
[2020-03-07 12:02] LABS: SARS-CoV-2 MS2 Positive; SARS-CoV-2 N Gene Negative; SARS-CoV-2 S Gene Negative; SARS-CoV-2 by NAA Not Detected (NotDetected); SARS-CoV-2 orf1ab Negative
[2020-03-07] MEDS: Lactated Ringer's 1,000 ML IV SCH ×2 (13:50→18:07)
[2020-03-07 20:44] VITALS: TEMP 98.5
[2020-03-08] MEDS: Ibuprofen 800 MG TAB PO SCH (05:28)
[2020-03-08] MEDS: Lactated Ringer's 1,000 ML IV SCH ×2 (07:04→08:10)
--- NOTE | 2020-03-08 07:54 | PDOC.PP ---
Post Progress Note Post Day #: 2 Subjective: Pain well controlled. . Tolerating PO, ambulating, minimal lochia. PO intake tolerated: yes Flatus: yes Ambulation: yes Vital Signs (12 hours) Temp Pulse Resp BP 03/07/20 20:09 98.5 F 70 16 110/68 Weight Weight 68.039 kg - Physical Examination General: NAD Cardiovascular: no m/r/g, RRR Respiratory: clear to auscultation bilaterally, non-labored breathing Abdominal: + bowel sounds, appropriately TTP Fundus firm & at: below umbilicus Neurological: no gross focal deficits Psychiatric: A&Ox3, normal affect Result Diagrams: 03/07/20 06:17 Additional Labs: Post Labs Hep Bs Antigen Non-Reactive S/CO (NonReactive) 03/06/20 17:15 Blood Type B POSITIVE 03/06/20 17:15 - Assessment/Plan sIUP, delivered - PPD #2 - Meeting PP milestones - Continue routine care - Contraception: undecided Anemia of Short IP - Delivered VAVD 03/2019 Dispo: Home today pending baby's bili
[2020-03-08] MEDS: Ferrous Sulfate 325 MG TAB PO SCH (08:19)
[2020-03-08] MEDS: Prenatal Vitamin 1 TAB PO SCH (08:20)
[2020-03-08] MEDS: Docusate Calcium (SURFAK) 240 MG CAP PO SCH (08:20)
[2020-03-08 08:31] VITALS: BP 112/79
--- NOTE | 2020-03-11 06:47 | PQF ---
CLINICAL DOCUMENTATION CLARIFICATION FORM: Dear : Kojo Boss Date / Time: 03/11/2020 0646 Please exercise your independent, professional judgment in responding to the clarification form. Clinical indicators are provided on the bottom of this form for your review Please check appropriate box(es): [ ] Acute blood loss anemia [ ] Chronic Anemia Blood loss [ ] Iron Deficiency anemia related to Acute blood loss [ x ] Other diagnosis ___Anemia of , anemia from vaginal (no PPH) [ ] Unable to determine Physician Signature: Kojo Boss Date/Time: 03/12/20 1241 For continuity of documentation, please document condition throughout progress notes and discharge summary. Thank You. To be completed by CDI/Coding staff for physician review: Present Clinical Indicators - Signs / Symptoms / Labs Results and Location in Medical Record [X] BP 107/57, Pulse 75, Resp 18, Temp 97.4 Vital signs 03/07 [X] RBC 3.76, Hgb 10.7, Hct 31.6 Laboratory 03/06 [X] RBC 3.43, Hgb 9.9, Hct 28.7 Laboratory 03/07 [X] Anemia iron deficiency H&P p5 03/06 Dr Varma [X] Anemia in H&P p5 03/06 Dr Varma [X] Estimated blood loss: [address] L[address]D summary [address]1 [address] Varma Present Risk Factors Results and Location in Medical Record [X] 39 weeks of gestation H&P p5 03/06 Dr Varma [X] First degree laceration L&D summary p1 Dr Varma [X] s/p L&D summary p1 Dr Varma Present Treatments Results and Location in Medical Record [X] IV Lactated Ringers 1L JUL 22 [X] Ferrous Sulfate 325 mg JUL 22 [X] Series of Hgb and Hct Laboratory 03/06 CDS/Credit Control Clerk Signature: Trudy Hernandezlibby Phone #: ext [phone] Date/Time: 03/11/202046 This is a permanent part of the Medical Record [facility]
== END 2020-03-08 12:29 | disposition home or self-care (01) | DRG 807 ==
LOC: L&D 15:12 → 3SW 03-07 14:23
PROVIDERS: ADMIT Obstetrics & Gynecology; ATTEND Obstetrics & Gynecology
PROC: 10E0XZZ Delivery of Products of Conception, External Approach (ICD-10-PCS; principal; 2020-03-06)
PROC: 0HQ9XZZ Repair Perineum Skin, External Approach (ICD-10-PCS; 2020-03-06)
DX: O99.02 Anemia complicating childbirth (principal); Z37.0 Single live birth; Z3A.39 39 weeks gestation of pregnancy; Z20.828 Contact with and (suspected) exposure to other viral communicable diseases; N89.8 Other specified noninflammatory disorders of vagina; O34.83 Maternal care for other abnormalities of pelvic organs, third trimester; D50.9 Iron deficiency anemia, unspecified; O70.0 First degree perineal laceration during delivery
CPT/HCPCS: 36415; 84112; 85027; 86780; 86850; 86900; 86901; 87340; 87635; J2001; U0003

== ENCOUNTER 2022-04-18 15:52 | Emergency (ER) | payer MEDICAID | END 2022-04-18 18:59 | disposition home or self-care (01) | LOC: ERS 15:52 | DX: S09.8XXA Other specified injuries of head, initial encounter (principal); S40.021A Contusion of right upper arm, initial encounter; W10.9XXA Fall (on) (from) unspecified stairs and steps, initial encounter; Y92.009 Unspecified place in unspecified non-institutional (private) residence as the place of occurrence of the external cause | CPT/HCPCS: 70450; 72125 ==